=== PATIENT | female | born 1955 | race Caucasian/White ===

== ENCOUNTER → 2016-08-20 | Outpatient (CLI) | payer BC | LOC: MAMMO 09:58 | DX: Z12.31 Encounter for screening mammogram for malignant neoplasm of breast (principal) | CPT/HCPCS: G0202 ==

== ENCOUNTER → 2018-03-08 | Outpatient (CLI) | payer BC | LOC: MAMMO 11:29 | DX: Z12.31 Encounter for screening mammogram for malignant neoplasm of breast (principal) ==

== ENCOUNTER 2019-05-03 18:22 | Emergency (ER) | payer BC ==
[2019-05-03] MEDS ORDERED: ALEVE220 M1 PO (18:34)
[2019-05-03] MEDS ORDERED: DIVALPROEX SOD250 MG PO (18:34)
[2019-05-03] MEDS ORDERED: OLANZAPINE2.5 M1 PO (18:35)
[2019-05-03] MEDS ORDERED: TROSPIUM CHLORI60 MG PO (18:35)
[2019-05-03] MEDS ORDERED: METAMUCIL660 GM (18:36)
[2019-05-03] MEDS ORDERED: NASACORT A55 MCG/Act NS (18:37)
[2019-05-03] MEDS ORDERED: ESTRACE0.1 MG/GM VG (18:39)
[2019-05-03] MEDS ORDERED: HYALURONIC ACI1 EACH PO (18:41)
[2019-05-03] MEDS ORDERED: [UNRECOGNIZED DRUG - OTHER] PO (18:42)
[2019-05-03] MEDS ORDERED: MUCINEX 60600 MG/TA1 PO (18:45)
[2019-05-03] MEDS ORDERED: CHILDREN'S12.5 MG/2 PO (18:46)
[2019-05-03] MEDS ORDERED: HALLS7.5 MG PO (18:46)
[2019-05-03] MEDS ORDERED: AMOXICILLIN875 MG PO (19:19)
[2019-05-03 19:30] VITALS: BP 127/80
== END 2019-05-03 19:30 | disposition home or self-care (01) ==
LOC: ED 18:22
DX: J40 Bronchitis, not specified as acute or chronic (principal); J03.90 Acute tonsillitis, unspecified; F31.9 Bipolar disorder, unspecified; Z98.890 Other specified postprocedural states

== ENCOUNTER → 2020-09-03 | Outpatient (CLI) | payer BC ==
[~2020-09-03] MED LIST: ALEVE220 M1 PO; AMOXICILLIN875 MG PO; CHILDREN'S12.5 MG/2 PO; DIVALPROEX SOD250 MG PO; ESTRACE0.1 MG/GM VG; HALLS7.5 MG PO; HYALURONIC ACI1 EACH PO; METAMUCIL660 GM; MUCINEX 60600 MG/TA1 PO; NASACORT A55 MCG/Act NS; OLANZAPINE2.5 M1 PO; TROSPIUM CHLORI60 MG PO; [UNRECOGNIZED DRUG - OTHER] PO
== END ==
LOC: MAMMO 13:35
DX: Z12.31 Encounter for screening mammogram for malignant neoplasm of breast (principal)